=== PATIENT | male | born 1995 | race Caucasian/White ===

== ENCOUNTER 2016-10-11 11:13 | Emergency (ER) | payer BC ==
[~2016-10-11] VITALS: Ht 177.8 cm; Wt 74.5 kg
[~2016-10-11 11:13] MED LIST: FLUT1SPR9; HUMIBIDDM PO
[2016-10-11 11:23] VITALS: BP 105/71; PULSE 69; RESP 16; TEMP 98.5; O2SAT 98
--- NOTE | 2016-10-11 12:35 | PD ---
HPI Chief Complaint: Cold / Flu Symptoms Time Seen by Provider: 12:32 Travel History International Travel<30 days: No Contact w/Intl Traveler<30days: No Traveled to known affect area: No History of Present Illness HPI 21-year-old male presents to the ED for evaluation of approximately 12 hour history of malaise, fevers, clear rhinorrhea, sore throat, nonproductive cough. Onset of symptoms approximately 10 PM. He states that he measured a oral temperature of 101 before bed. States that he woke up this morning with a migraine headache and mild nausea. Resolved on presentation. He denies ear pain, chest pain, shortness of breath, abdominal pain, nausea or vomiting. He denies receiving this years flu vaccine. 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 He took 2 Advil with some improvement of his symptoms. PFSH Past Medical History Diminished Hearing: No Respiratory: Yes (Asthma as child) Immunizations Current: Yes Past Surgical History Other Surgery: Yes (Eustachian tubes as infant) Social History Alcohol Use: Yes (OCCAS) Tobacco Use: No Substance Use: No Allergies-Medications (Allergen,Severity, Reaction): Coded Allergies: Ventolin (Verified Allergy, Severe, FAINTING, 10/17/15) Reported Meds & Prescriptions Reported Meds & Active Scripts Active Mucinex Dm 30-600 mg (Guaifenesin/Dextromethorphan) 1 Zac Zac 2 Tab PO Q12HR 5 Days Flonase Allergy Relief (Fluticasone Propionate (Nasal)) 50 Mcg/Act Spr 2 [place] NA DAILY Review of Systems Except as stated in HPI: all other systems reviewed are Neg Physical Exam Narrative GENERAL: Well-nourished, well-developed nontoxic appearing white male in no acute distress. Smiling, chatting with the doctor at the bedside. SKIN: Warm and dry. HEAD: Normocephalic. Atraumatic. EYES: No scleral icterus. No injection or drainage. PERRLA. EOMI. ENT: Pearly orellana tympanic membranes bilaterally. Nasal mucosa is moist. Oropharynx mild erythema. No edema or exudate. NECK: Supple, trachea midline. No JVD or lymphadenopathy. CARDIOVASCULAR: Regular rate and rhythm without murmurs, gallops, or rubs. 2+ DP and radial pulses bilaterally. RESPIRATORY: Breath sounds clear and equal bilaterally. No accessory muscle use. GASTROINTESTINAL: Abdomen soft, non-tender, nondistended. + Bowel sounds MUSCULOSKELETAL: No cyanosis, or edema. The patient is noted to walk with a normal gait. BACK: Nontender without obvious deformity. No CVA tenderness. Data Data Last Documented VS Vital Signs Date Time Temp Pulse Resp B/P Pulse Ox O2 Delivery O2 Flow Rate FiO2 10/11/16 11:23 98.5 69 16 105/71 98 Room Air Orders Influenzae A/B Antigen (10/11/16 12:24) Group A Rapid Strep Screen (10/11/16 12:32) Strep Culture (Group A) (10/11/16 12:30) MDM Medical Decision Making Medical Screen Exam Complete: Yes Emergency Medical Condition: Yes Differential Diagnosis Viral syndrome versus pharyngitis versus strep pharyngitis versus influenza versus other Narrative Course 21-year-old male presents to the ED for evaluation of approximately 12 hour history of malaise, fevers, clear rhinorrhea, sore throat, nonproductive cough. Onset of symptoms approximately 10 PM. He states that he measured a oral temperature of 101 before bed. States that he woke up this morning with a migraine headache and mild nausea. Resolved on presentation. Vitals reviewed. Physical exam reveals a nontoxic-appearing white male in no acute distress. He is chatting animatedly with a visitor in his area. Strep swab and Flu Negative. This Is Viral Syndrome. Patient Was Instructed to Treat Symptomatically with OTC Medications, Follow up with His Primary Care Provider. He Indicated Understanding of Instructions. He Is Stable and Discharged Home. Diagnosis Primary Impression: Viral syndrome Referrals: Primary Care Physician Patient Instructions: General Instructions, Viral Syndrome (ED) Additional Instructions: Rest, hydrate. Push fluids such as sports drinks, Pedialyte, popsicles, clear broth. Continue with symptomatic treatment with OTC medications. Alternating Motrin and Tylenol as directed on the label every 4-6 hours as needed for continued fever. Increase handwashing frequently to avoid the spread of the virus to other family members and the community. Disinfect commonly touched surfaces such as light switches, microwaves, remote controls. Replace toothbrush at the end of this illness. Follow-up with the primary care provider this week. Return to the ED for any urgent or emergent medical condition. Disposition: 01 DISCHARGE HOME Condition: Stable Josefa Blackwell Oct 11, 2016 12:35
== END 2016-10-11 13:28 | disposition home or self-care (01) ==
LOC: PHEFT 11:13
DX: B34.9 Viral infection, unspecified (principal)
CPT/HCPCS: 87081; 87804; 87880; 99283